=== PATIENT | female | born 2000 | race Caucasian/White ===

== ENCOUNTER 2022-02-13 16:06 | Outpatient (REF) | payer SELFPAY ==
[2022-02-14 05:03] LABS: ~Hepatitis B Surface Antibody NONREACTIVE (Nonreactive)
[2022-02-15 11:21] LABS: TS Negative Control Passed; TS Panel A 0; TS Panel B 1; TS Positive Control Passed; TSpotTB Negative (Negative)
== END 2022-02-13 16:07 | disposition home or self-care (01) ==
LOC: HO.LNP 16:06
PROVIDERS: Visit Provider Internal Medicine
DX: Z02.1 Encounter for pre-employment examination (principal); Z11.1 Encounter for screening for respiratory tuberculosis
CPT/HCPCS: 86481; 86706

== ENCOUNTER 2022-05-29 13:14 | Emergency (ER) | payer OTHER, MEDICAID, SELFPAY ==
[2022-05-29 13:23] VITALS: BP 130/70; PULSE 84; RESP 19; TEMP 36.6; O2SAT 98; BMI 31.1
--- NOTE | 2022-05-29 18:07 | ED_ITS ---
HPI - Back Pain/Injury General Chief Complaint: Back Pain/Injury <CARLITO Rene - Last Filed: 05/29/22 18:43> Stated Complaint: Low Back Pain No Injury <CARLITO Rene - Last Filed: 05/29/22 18:43> Time Seen by Provider: 05/29/22 17:18 <CARLITO Rene - Last Filed: 05/29/22 18:43> Source: patient <CARLITO Rene Last Filed: 05/29/22 18:43> Mode of arrival: ambulatory <CARLITO Rene Last Filed: 05/29/22 18:43> History of Present Illness HPI Narrative: 21-year-old female with no significant past medical history presenting to the ED complaining of right lower back/buttock pain radiating to right lower extremity x1 week. Admits was seen at [facility] a few days ago prescribed muscle relaxers without relief. States pain sometimes radiates to lower abdomen. Denies known injury/trauma or fall. Denies hematuria, dysuria, flank pain, frequency, nausea, vomiting, numbness/tingling, urinary incontinence/rete ntion. LMP started today <CARLITO Rene - Last Filed: 05/29/22 18:43> MD elicited complaint: back pain <CARLITO Rene Last Filed: 05/29/22 18:43> Onset (ago): week(s) <CARLITO Rene Last Filed: 05/29/22 18:43> Related Data Home Medications: Previous Rx's Medication Instructions Recorded cyclobenzaprine 5 mg tablet 5 mg PO Q8H PRN pain (scale score 05/29/22 7-10) 5 days #14 tabs ketorolac 10 mg tablet 10 mg PO TID PRN pain 5 days #15 05/29/22 tabs lidocaine 5 % topical patch 1 patch topical DAILY PRN pain #30 05/29/22 (Lidoderm) ea <CARLITO Rene - Last Filed: 05/29/22 18:43> Allergies/Adverse Reactions: Allergies Allergy/AdvReac Type Severity Reaction Status Date / Time No Known Allergies Allergy Verified 05/29/22 17:35 <CARLITO Rene - Last Filed: 05/29/22 18:43> Review of Systems Review of Systems: Constitutional: No Fever, No Chills ENT/Mouth: No Ear Pain, No Nasal Congestion, No sore throat, No Rhinorrhea, No Swallowing Difficulty Cardiovascular: No Chest Pain, No SOB Respiratory: No Cough, No Sputum, No Wheezing Gastrointestinal: No Nausea, No Vomiting, No Diarrhea, No Constipation, No Abdominal pain Genitourinary: No Dysuria, No Urinary Frequency, No Hematuria, No Urinary Incontinence/retention, No Urgency, No Flank Pain Musculoskeletal: + joint pain, No Myalgias, No Joint Swelling Skin: No Skin Lesions, No rash Neuro: No Weakness, No Numbness, No Paresthesias <CARLITO Rene - Last Filed: 05/29/22 18:43> Yes all other systems are reviewed and are negative <CARLITO Rene - Last Filed: 05/29/22 18:43> Neurologic: Denies Sensory deficit (Neuro) <CARLITO Rene - Last Filed: 05/29/22 18:43> [facility] Past Medical History Attestation statement: The following information was validated with the patient. <CARLITO Rene - Last Filed: 05/29/22 18:43> Social History Social History: Social History Advance Directives: No Advance Directives Information Provided: Yes <CARLITO Rene - Last Filed: 05/29/22 18:43> Physical Exam Vital Signs: Vital Signs: Last Vital Signs Temp 98 F 05/29/22 13:23 Pulse 84 05/29/22 13:23 Resp 19 05/29/22 13:23 BP 130/70 05/29/22 13:23 Pulse Ox 98 05/29/22 13:23 O2 Del Method 05/29/22 13:23 BMI result Body Mass Index 31.1 <CARLITO Rene Last Filed: 05/29/22 18:43> Vital Signs: Last Vital Signs Temp 98 F 05/29/22 13:23 Pulse 84 05/29/22 13:23 Resp 19 05/29/22 13:23 BP 130/70 05/29/22 13:23 Pulse Ox 98 05/29/22 13:23 O2 Del Method 05/29/22 13:23 BMI result Body Mass Index 31.1 <Junie Vinson NP - Last Filed: 05/29/22 19:33> Const: General: cooperative, healthy appearing and no acute distress <CARLITO Rene - Last Filed: 05/29/22 18:43> Orientation/consciousness: patient oriented x3 <CARLITO Rene - Last Filed: 05/29/22 18:43> Limitations: no limitations <CARLITO Rene - Last Filed: 05/29/22 18:43> HEENT: Head: Yes normal to inspection and Yes atraumatic <CARLITO Rene - Last Filed: 05/29/22 18:43> Ears: hearing grossly normal bilaterally <CARLITO Rene - Last Filed: 05/29/22 18:43> General nose exam: Normal external nose present <CARLITO Rene - Last Filed: 05/29/22 18:43> Face and sinus: Yes normal facial exam <CARLITO Rene - Last Filed: 05/29/22 18:43> Eyes: General: appearance normal, both eyes and all related structures <CARLITO Rene - Last Filed: 05/29/22 18:43> EOM: EOMs intact bilaterally <CARLITO Rene - Last Filed: 05/29/22 18:43> Neck: Other: No midline cervical spinous tenderness <CARLITO Rene - Last Filed: 05/29/22 18:43> Neck: Yes normal visual inspection and Yes no meningeal signs <CARLITO Rene - Last Filed: 05/29/22 18:43> Resp: Effort & Inspection: normal respiratory effort and no respiratory distress <CARLITO Rene - Last Filed: 05/29/22 18:43> Cardio: Rate: regular rate <CARLITO Rene - Last Filed: 05/29/22 18:43> Heart sounds: S1 normal heart sound present and S2 normal heart sound present <CARLITO Rene - Last Filed: 05/29/22 18:43> GI: Inspection: Yes normal to inspection <Hodan Butcher PA - Last Filed: 05/29/22 18:43> Palpation (GI): Soft to palpation, nontender, no guarding and not rigid <Hodan Butcher PA - Last Filed: 05/29/22 18:43> : General: Yes no CVA tenderness <Hodan Butcher PA - Last Filed: 05/29/22 18:43> Back/Spine/Pelvis: Other: No midline thoracic/lumbar spinous tenderness/step-off or deformity. + mild right lower back and buttock ttp. No erythema or ecchymosis <Hodan Butcher PA - Last Filed: 05/29/22 18:43> Back: no CVA tenderness <Hodan Butcher PA - Last Filed: 05/29/22 18:43> Skin: Rashes: no rashes <Hodan Butcher PA - Last Filed: 05/29/22 18:43> Wounds: no wounds <Hodan Butcher PA - Last Filed: 05/29/22 18:43> Neuro: Other: Strength intact throughout. No saddle anesthesia. Sensation intact to light touch. Neurovascular intact distally <Hodan Butcher PA - Last Filed: 05/29/22 18:43> General: patient oriented x3, gait normal, tone normal, moves all extremities, no meningeal signs and no focal motor deficits <Hodan Butcher PA - Last Filed: 05/29/22 18:43> Gait exam (Neuro): Normal gait present <Hodan Butcher PA - Last Filed: 05/29/22 18:43> Motor exam (neuro): 5/5 motor strength present throughout <Hodan Butcher PA - Last Filed: 05/29/22 18:43> Sensory Exam: No Sensory deficit (Neuro) <Hodan Butcher PA - Last Filed: 05/29/22 18:43> Extrem: General: Yes normal to inspection <CARLITO Rene - Last Filed: 05/29/22 18:43> Course Course Course Narrative: -1900--80 care transfer to [facility] pending UA and urine . Anticipated DC home <CARLITO Rene - Last Filed: 05/29/22 18:43> Reevaluation(s) Reevaluation #1: 1930-UA shows microscopic hematuria. No other acute finding on the urinalysis. Patient is currently on her menses. Hematuria is likely secondary to this and not from infection. Improvement with Toradol. Will discharge home <Junie Vinson NP - Last Filed: 05/29/22 19:33> MDM - Back Pain/Injury MDM Narrative Medical decision making narrative: 21-year-old female with no significant past medical history presenting to the ED complaining of right lower back/buttock pain radiating to right lower extremity x1 week. On exam vital signs stable, NAD/nontoxic appearing, no midline spinous tenderness throughout, no red flag symptoms, abdomen soft/n ontender, no CVA tenderness. Concern for MSK spasming/strain vs sciatica. Low concern for cauda equina or fx. R/o UTI. low concern for appendicits/diverticulitis or renal stone/pyelo Plan: U-, UA <CARLITO Rene - Last Filed: 05/29/22 18:43> Differential Diagnosis Differential diagnosis: Likely lumbar radiculopathy, sciatica and strain of lumbar region <CARLITO Rene - Last Filed: 05/29/22 18:43> Medical Records Attestation: I reviewed the patient's medical records. <CARLITO Rene - Last Filed: 05/29/22 18:43> Lab Data Attestation: I reviewed the patient's lab results. <CARLITO Rene - Last Filed: 05/29/22 18:43> Labs: Lab Results 05/29/22 05/29/22 Range/Units 18:23 18:24 Urine Color YELLOW Urine Appearance TURBID Urine pH 5.5 (5.0-8.0) Ur Specific [place] >= 1.030 H (1.005-1.025) Urine Protein 1+ H (NEG-TRACE) MG/DL Urine Glucose (UA) NEG (NEG) MG/DL Urine Ketones NEG (NEG) MG/DL Urine Blood 3+ H (NEG) Urine Nitrite NEG (NEG) Ur Leukocyte Esterase NEG (NEG) Urine RBC 76-150 H (0) /HPF Urine WBC 0-2 (0-4) /HPF Ur Squamous Epith Cells TRACE /LPF Amorphous Sediment 3+ /LPF Urine Bacteria 1+ /LPF Urine Mucus TRACE /LPF Urine Test NEGATIVE (NEGATIVE) <CARLITO Rene - Last Filed: 05/29/22 18:43> Lab Results 05/29/22 05/29/22 Range/Units 18:23 18:24 Urine Color YELLOW Urine Appearance TURBID Urine pH 5.5 (5.0-8.0) Ur Specific [place] >= 1.030 H (1.005-1.025) Urine Protein 1+ H (NEG-TRACE) MG/DL Urine Glucose (UA) NEG (NEG) MG/DL Urine Ketones NEG (NEG) MG/DL Urine Blood 3+ H (NEG) Urine Nitrite NEG (NEG) Ur Leukocyte Esterase NEG (NEG) Urine RBC 76-150 H (0) /HPF Urine WBC 0-2 (0-4) /HPF Ur Squamous Epith Cells TRACE /LPF Amorphous Sediment 3+ /LPF Urine Bacteria 1+ /LPF Urine Mucus TRACE /LPF Urine Test NEGATIVE (NEGATIVE) <Junie Vinson NP - Last Filed: 05/29/22 19:33> Discharge Plan Discharge Clinical Impression: Sciatica <CARLITO Rene - Last Filed: 05/29/22 18:43> Patient Disposition: Home, Self-Care <CARLITO Rene - Last Filed: 05/29/22 18:43> Instructions: Sciatica (ED) <CARLITO Rene - Last Filed: 05/29/22 18:43> Additional Instructions: Your pain is likely musculoskeletal Flexeril is a muscle relaxer, ONLY TAKE ONE MUSCLE RELAXER DO NOT TAKE BOTH. take at night as it makes you drowsy, do not drive, drink alcohol, or operate m achinery while taking it Naproxen as an anti-inflammatory / pain medication, take with food Lidoderm patches are numbing patches, apply to painful area In addition take Tylenol at home If symptoms persist or worsen, pain becomes unbearable, you developed urinary retention or incontinence, or weakness return to the ED <CARLITO Rene - Last Filed: 05/29/22 18:43> Prescriptions: New ketorolac 10 mg tablet 10 mg PO TID PRN (Reason: pain) 5 Days Qty: 15 0RF lidocaine [Lidoderm] 5 % adhesive patch,medicated 1 patch topical DAILY MDD remove after 12 hours PRN (Reason: pain) Qty: 30 0RF Rx Instructions: leave on most painful area for up to 12 hrs cyclobenzaprine 5 mg tablet 5 mg PO Q8H PRN (Reason: pain (scale score 7-10)) 5 Days Qty: 14 0RF <CARLITO Rene - Last Filed: 05/29/22 18:43> Referrals: Physician,Unknown J [Primary Care Provider] - <CARLITO Rene - Last Filed: 05/29/22 18:43> Stand Alone Forms: Work/School Release <CARLITO Rene - Last Filed: 05/29/22 18:43>
[2022-05-29 18:50] LABS: Appearance Urine TURBID; Color Urine YELLOW; Glucose Urine UA NEG (NEG); Leukocyte Esterase Urine NEG (NEG); Nitrite Urine NEG (NEG); PH 5.5 (5.0-8.0); Specific Gravity - Urine >= 1.030 (1.005-1.025); UACC Culture Trigger NO; Urine Blood 3+ (NEG); Urine Ketones NEG (NEG); Urine Protein 1+ MG/DL (NEG-TRACE)
[2022-05-29 18:54] LABS: UPreg QC Valid YES; Urine Pregnancy NEGATIVE (NEGATIVE)
[2022-05-29] MEDS: Ketorolac Tromethamine 30 MG/ML VIAL IM (18:59)
[2022-05-29 19:09] LABS: Bacteria Urine 1+ /LPF; Squamous Epithelial Cell Urine TRACE /LPF; WBC Urine 0-2 /HPF (0-4)
[2022-05-29 19:10] LABS: Amorphous Sediment Urine 3+ /LPF; Mucus Urine TRACE /LPF
== END 2022-05-29 20:08 | disposition home or self-care (01) ==
PROVIDERS: Physician Assistant; Emergency Provider Internal Medicine
DX: M54.41 Lumbago with sciatica, right side (principal); Z79.899 Other long term (current) drug therapy
CPT/HCPCS: 81001; 81025; 96372; 99284; J1885